=== PATIENT | female | born 1960 | race Caucasian/White ===

== ENCOUNTER 2021-05-18 22:57 | Emergency (ER) | payer OTHER, MEDICAID, SELFPAY ==
[2021-05-18 22:58] VITALS: BP 122/71; PULSE 70; RESP 16; TEMP 36.4; O2SAT 95; BMI 30.6
--- NOTE | 2021-05-18 23:04 | DI.CT.S_ITS ---
PROCEDURE: CT HEAD/BRAIN WO CON INDICATIONS: blurry vision x 8 hours TECHNIQUE: Noncontrast 4.5 mm thick angled axial sections acquired from the foramen magnum to the vertex, with coronal and sagittal reformats. For radiation dose reduction, the following was used: automated exposure control, adjustment of mA and/or kV according to patient size. COMPARISON: None. FINDINGS: Image quality: Excellent. CSF spaces: Basal cisterns are patent. No extra-axial fluid collections. The ventricles are symmetric in size and shape. Brain: No intracranial bleeds or masses. There is cerebral volume loss for age, with resultant ventricular and sulcal prominence. There are periventricular and deep white matter chronic small vessel ischemic changes. There is intracranial internal carotid artery atherosclerosis. Skull and face: Calvarium and visualized facial bones appear intact, without suspicious lesions. Sinuses: Visualized sinuses and mastoids are clear. IMPRESSION: 1. No CT evidence of acute intracranial abnormalities. 2. Mild white matter chronic small vessel ischemic changes. Dictated by: Korey Roland M.D. on 05/18/2021 at 23:31 Approved by: Korey Roland M.D. on 05/18/2021 at 23:32
[2021-05-18 23:21] LABS: Add Manual Diff / Slide Review NO; Basophils Absolute Auto 0 /uL (0-100); Basophils Percent Auto 0.3 % (0-2); Eosinophils Absolute Auto 0 /uL (0-450); Eosinophils Percent Auto 0.2 % (2-4); Hematocrit 41.7 % (36-46); Hemoglobin 14.1 g/dL (12.0-16.0); Lymphocytes Absolute Auto 1500 /uL (1100-4500); Lymphocytes Percent Auto 13.1 % (25-40); Mean Corpuscular HGB Conc 33.8 % (30-36); Mean Corpuscular Hemoglobin 32.6 PG (26-34); Mean Corpuscular Volume 96.4 fL (80-100); Monocytes Absolute Auto 1400 /uL (0-900); Monocytes Percent Auto 11.7 % (3-14); Neutrophils Absolute Auto 8700 /uL (1500-7000); Neutrophils Percent Auto 74.7 % (50-75); Platelet Count 192 X10^3/uL (150-400); Red Blood Cell Count 4.33 X10^6/uL (4.0-5.2); Red Cell Distribution Width 14.1 % (11.6-14.8); White Blood Cell Count 11.6 X10^3/uL (4.5-11.0)
[2021-05-18 23:32] LABS: Alanine Aminotransferase 20 IU/L (<35); Albumin 4.3 g/dL (3.5-5.0); Albumin Globulin Ratio 1.2 (1.0-2.8); Alkaline Phosphatase 52 U/L (38-126); Aspartate Aminotransferase 23 IU/L (14-36); Bilirubin Total 0.4 mg/dL (0.2-1.3); Blood Urea Nitrogen 30 mg/dL (7-17); Carbon Dioxide 21 mmol/L (22-32); Chloride 103 mmol/L (98-107); Creatine Kinase 143 U/L (30-135); Estimated Glomerular Filt Rate 26.5 mL/min (>60); Globulin 3.6 g/dL (1.7-4.1); Glucose 123 mg/dL (80-110); Lipase 74 U/L (23-300); Potassium 3.9 mmol/L (3.4-5.1); Sodium 134 mmol/L (137-145); Total Protein 7.9 g/dL (6.3-8.2)
[2021-05-18 23:43] LABS: Troponin I < 0.012 ng/mL (0.01-0.034)
[2021-05-18 23:47] LABS: CKMB % Relative Index 1.2 % (1.5-5.0); Creatine Kinase MB 1.73 ng/mL (<2.37); HEMOLYSIS 15 (0-50)
--- NOTE | 2021-05-18 23:59 | ED_ITS ---
HPI - Neuro Symptoms/Deficit General Chief Complaint: Neuro Symptoms/Deficit Stated Complaint: vision loss Time Seen by Provider: 05/18/21 23:03 Source: patient and EMS Mode of arrival: EMS History of Present Illness HPI Narrative: Patient is a 61-year-old female who has a history of hyperlipidemia, hypertension severe anxiety presenting today with visual disturbance. She says she has had this happen multiple times it is usually associated with anxiety reaction. She states she lives with her sister who is going through a divorce they had an argument today day and she rate acted. She had some shaking of arms and legs and blurry vision. She was aware the whole time she was shaking. This happened somewhere between 1 and 3:00 p.m.. However she continues to have blurry vision does not blackening or loss of vision. She says typically the vision does not last this long. She has no numbness tingling or weakness. No difficulty speaking. He says she has had multiple workups which never show anything. No prior history of CVA or TIA. She already is feeling better and calmer now than he has in the emergency department. She is not wanting anything for anxiety. On Anticoagulants: No Related Data Home Medications Medication Instructions Recorded Confirmed albuterol sulfate 90 mcg/actuation 2 puff INHALATION 6XD PRN 05/18/21 05/18/21 aerosol inhaler atorvastatin 20 mg tablet 20 mg PO BEDTIME 05/18/21 05/18/21 benazepril 10 mg tablet 10 mg PO BID 05/18/21 05/18/21 benzonatate 100 mg capsule 100 mg PO TID PRN 05/18/21 05/18/21 budesonide-formoterol HFA 160 2 puff INHALATION BID 05/18/21 05/18/21 mcg-4.5 mcg/actuation aerosol inhaler buspirone 7.5 mg tablet 7.5 mg PO BID 05/18/21 05/18/21 diclofenac sodium 1 % topical gel 2.5 g TOPICAL QID 05/18/21 05/18/21 escitalopram oxalate 20 mg tablet 20 mg PO DAILY 05/18/21 05/18/21 fluticasone furoate 200 1 inh INHALATION DAILY 05/18/21 05/18/21 mcg-vilanterol 25 mcg/dose inhalation powder (Breo Ellipta) fluticasone propionate 50 2 spray INTRANASAL TID 05/18/21 05/18/21 mcg/actuation nasal spray,suspension gabapentin 800 mg tablet 800 mg PO TID 05/18/21 05/18/21 hydrocodone 10 mg-acetaminophen 1 tab PO Q4-6H PRN 05/18/21 05/18/21 325 mg tablet leflunomide 20 mg tablet 20 mg PO DAILY 05/18/21 05/18/21 meloxicam 15 mg tablet 15 mg PO DAILY 05/18/21 05/18/21 montelukast 10 mg tablet 10 mg PO DAILY 05/18/21 05/18/21 prednisone 20 mg tablet 40 mg PO DAILY 05/18/21 05/18/21 trazodone 100 mg tablet 100 mg PO BEDTIME 05/18/21 05/18/21 Allergies Allergy/AdvReac Type Severity Reaction Status Date / Time varenicline [From Chantix] Allergy Hives Verified 05/18/21 23:04 Review of Systems Review of Systems Narrative: GENERAL: Denies chills, fatigue, malaise, fever, sweats, travel HEENT: See HPI RESPIRATORY: Denies dyspnea, cough, wheezing, hemoptysis, sputum. CARDIOVASCULAR: Denies chest pain, palpitations, orthopnea, edema GASTROINTESTINAL: Denies nausea, vomiting, abdominal pain, diarrhea, constipation, melena. : Denies dysuria, frequency, incontinence, hematuria, urinary retention, flank pain. MUSCULOSKELETAL: Denies weakness, joint pain, or bony pain SKIN: No rash, no erythema, no pruritus NEUROLOGIC: See HPI PSYCHIATRIC: No concerning psychosocial issues. 12 point review of systems is negative except for those stated above and HPI Hematologic/Lymphatic On Anticoagulants: No Patient History Social History Smoking Status: Current every day smoker Smoking Status: Current every day smoker tobacco type: cigarettes alcohol intake frequency: other Substance Use Type: marijuana Exam Initial Vital Signs Initial Vital Signs: Vital Signs Temperature 97.6 F 05/18/21 22:58 Pulse Rate 70 05/18/21 22:58 Respiratory Rate 16 05/18/21 22:58 Blood Pressure 122/71 05/18/21 22:58 Pulse Oximetry 95 05/18/21 22:58 GENERAL: Alert his he 1-year-old female appears slightly older than stated age in no acute distress. HEENT: Head atraumatic,EOMI, pupils reactive, face symmetric, moist mucous membranes CARDIOVASCULAR: Regular rate and rhythm without murmurs, rubs or gallops. RESPIRATORY: Breath sounds equal bilaterally, no wheezes rales or rhonchi. ABDOMEN: Soft, nontender. Normoactive bowel sounds all 4 quadrants. No guarding or rebound. EXTREMITIES: Normal range of motion, no clubbing or edema. Neurovascularly in tact NEUROLOGICAL: Alert and oriented x4.Normal gait and speech. Cranial nerves II through XII grossly intact. Good [id number], good [id number], strength equal bilaterally, no dysarthria or aphasia, sensation in tact to soft touch bilaterally, no visual changes, no facial droop SKIN: Warm, dry, no laceration, no petechiae, no rashes or lesions. Scores NIH Stroke Scale Level of Conciousness: Alert, keenly responsive Ask month/age: Answers both questions correctly. Open/close eyes, close hand: Performs both tasks correctly Best gaze horizontal: Normal Visual payne: No visual loss Facial palsy: Normal symetrical movement Left arm drift: No drift for full 10 sec Right arm drift: No drift for full 10 sec Left leg drift: No drift for full 5 sec Right leg drift: No drift for full 5 sec Limb ataxia: Absent Sensory on face/arms/legs: Normal, no sensory loss Best language: No aphasia, normal Dysarthria: Normal Extinction or inattention: No abnormality Total NIH Stroke scale score: 0 Course Orders Ordered: ED Orders 05/18/21 23:04 CT head/brain wo con Stat EKG-12 Lead Stat 05/18/21 23:12 Complete Blood Count AUTO DIFF Stat Comprehensive Metabolic Panel Stat Lipase Stat Troponin & CK Cardiac Panel Stat Vital Signs Vital signs: Vital Signs - 8 hr 05/18/21 22:58 05/19/21 00:03 05/19/21 00:04 Temperature 97.6 F Pulse Rate 70 80 80 Respiratory Rate 16 Blood Pressure 122/71 106/58 L Pulse Oximetry 95 96 96 05/19/21 00:30 Temperature Pulse Rate 82 Respiratory Rate Blood Pressure 113/62 Pulse Oximetry 95 MDM - Neuro Symptoms/Deficit Lab Data Result diagrams: 05/18/21 23:12 05/18/21 23:12 Labs: Lab Results 05/18/21 05/18/21 Range/Units 23:12 23:12 WBC 11.6 H (4.5-11.0) X10^3/uL RBC 4.33 (4.0-5.2) X10^6/uL Hgb 14.1 (12.0-16.0) g/dL Hct 41.7 (36-46) % MCV 96.4 (80-100) fL MCH 32.6 (26-34) PG MCHC 33.8 (30-36) % RDW 14.1 (11.6-14.8) % Plt Count 192 (150-400) X10^3/uL Neut % (Auto) 74.7 (50-75) % Lymph % (Auto) 13.1 L (25-40) % [place] % (Auto) 11.7 (3-14) % Eos % (Auto) 0.2 L (2-4) % Baso % (Auto) 0.3 (0-2) % Neut # (Auto) 8700 H (6925-8502) /uL Lymph # (Auto) 1500 (6521-4054) /uL [place] # (Auto) 1400 H (0-900) /uL Eos # (Auto) 0 (0-450) /uL Baso # (Auto) 0 (0-100) /uL Sodium 134 L (137-145) mmol/L Potassium 3.9 (3.4-5.1) mmol/L Chloride 103 (98-107) mmol/L Carbon Dioxide 21 L (22-32) mmol/L BUN 30 H (7-17) mg/dL Creatinine 1.87 H (0.52-1.04) mg/dL Estimated GFR 26.5 L (>60) mL/min BUN/Creatinine Ratio 16.0 (6-22) Glucose 123 H (80-110) mg/dL Calcium 9.0 (8.4-10.2) mg/dL Total Bilirubin 0.4 (0.2-1.3) mg/dL AST 23 (14-36) IU/L ALT 20 (<35) IU/L Alkaline Phosphatase 52 (38-126) U/L Total Creatine Kinase 143 H (30-135) U/L CK-MB (CK-2) 1.73 (<2.37) ng/mL CK-MB (CK-2) Rel Index 1.2 L (1.5-5.0) % Troponin I < 0.012 (0.01-0.034) ng/mL Total Protein 7.9 (6.3-8.2) g/dL Albumin 4.3 (3.5-5.0) g/dL Globulin 3.6 (1.7-4.1) g/dL Albumin/Globulin Ratio 1.2 (1.0-2.8) Lipase 74 (23-300) U/L Imaging Data CT scan - head: Radiologist's Impression: PROCEDURE:? CT HEAD/BRAIN WO CON ? INDICATIONS:? blurry vision x 8 hours ? TECHNIQUE:? Noncontrast 4.5 mm thick angled axial sections acquired from the foramen magnum to the vertex, with coronal and sagittal reformats.? For radiation dose reduction, the following was used:? automated exposure control, adjustment of mA and/or kV according to patient size.? ? COMPARISON:? None. ? FINDINGS:? Image quality:? Excellent.? ? CSF spaces:? Basal cisterns are patent.? No extra-axial fluid collections.? The ventricles are symmetric in size and shape.? ? Brain:? No intracranial bleeds or masses.? There is cerebral volume loss for age, with resultant ventricular and sulcal prominence.? There are periventricular and deep white matter chronic small vessel ischemic changes.? There is intracranial internal carotid artery atherosclerosis.? ? Skull and face:? Calvarium and visualized facial bones appear intact, without suspicious lesions.? ? Sinuses:? Visualized sinuses and mastoids are clear.? ? IMPRESSION:? 1. No CT evidence of acute intracranial abnormalities. 2. Mild white matter chronic small vessel ischemic changes.? ? ? Dictated by: Korey Roland M.D. on 05/18/2021 at 23:31 ? ? Approved by: Korey Roland M.D. on 05/18/2021 at 23:32 ? ECG Data Interpretation: Normal sinus rhythm rate 73 MT interval 172 QRS [address] changes or T- wave inversions MDM Narrative Medical decision making narrative: Patient is overall feeling better she says that her vision is clearing. She really has no focal deficits. Sounds as though she has this happen to her multiple times. Seems to be anxiety related. Certainly does sound like she was having seizure she was awake and oriented while the shaking was going. At this time patient's sister is in room she overall appears well I do not suspect stroke at this time. Discharge Plan Departure Patient Disposition: Home Clinical Impression: Anxiety reaction Instructions: DI for Anxiety -- Adult Activity Restrictions/Additional Instructions: *You have been diagnosed with anxiety *What to do: At this time workup is negative. Please follow-up with primary care provider *Continue to take medications as directed *Follow up with your primary care provider in 2-3 days or call [phone] *Return to ER if you should have loss of vision, numbness, tingling, weakness or any new, worsening or concerning symptoms Prescriptions: No Action atorvastatin 20 mg Tablet 20 mg PO BEDTIME 0RF meloxicam 15 mg Tablet 15 mg PO DAILY 0RF prednisone 20 mg Tablet 40 mg PO DAILY 0RF hydrocodone-acetaminophen 10-325 mg Tablet 1 tab PO Q4-6H PRN (Reason: Pain (Scale Score 1-3)) 0RF leflunomide 20 mg Tablet 20 mg PO DAILY 0RF gabapentin 800 mg Tablet 800 mg PO TID 0RF trazodone 100 mg Tablet 100 mg PO BEDTIME 0RF benzonatate 100 mg Capsule 100 mg PO TID PRN (Reason: Cough) 0RF buspirone 7.5 mg Tablet 7.5 mg PO BID 0RF montelukast 10 mg Tablet 10 mg PO DAILY 0RF albuterol sulfate 90 mcg/actuation Hfa Aerosol Inhaler 2 puff INHALATION 6XD PRN (Reason: Shortness Of Breath) 0RF benazepril 10 mg Tablet 10 mg PO BID 0RF fluticasone propionate 50 mcg/actuation [place],Suspension 2 spray INTRANASAL TID 0RF Rx Instructions: administer into each nostril escitalopram oxalate 20 mg Tablet 20 mg PO DAILY 0RF budesonide-formoterol 160-4.5 mcg/actuation Hfa Aerosol Inhaler 2 puff INHALATION BID 0RF diclofenac sodium [Voltaren] 1 % Gel 2.5 g TOPICAL QID 0RF Rx Instructions: apply to single elbow, wrist or hand; for hand includes palm/fingers/back of hand Breo Ellipta 200-25 mcg/dose Blister With Device 1 inh INHALATION DAILY 0RF
[2021-05-19 00:03] VITALS: PULSE 80; O2SAT 96
[2021-05-19 00:04] VITALS: BP 106/58; PULSE 80; O2SAT 96
[2021-05-19 00:30] VITALS: BP 113/62; PULSE 82; O2SAT 95
== END 2021-05-19 01:05 | disposition home or self-care (01) ==
PROVIDERS: Emergency Provider Emergency Medicine
DX: F41.1 Generalized anxiety disorder (principal); F17.210 Nicotine dependence, cigarettes, uncomplicated
CPT/HCPCS: 36415; 70450; 80053; 82550; 82553; 83690; 84484; 85025; 93010; 99284

== ENCOUNTER 2021-12-27 16:41 | Observation (INO) | payer OTHER, MEDICAID, SELFPAY ==
[2021-12-27] VITALS (13 sets, daily range): BP systolic 125–178; BP diastolic 59–94; PULSE 54–77; RESP 15–25; TEMP 36.2–36.6; O2SAT 96–98; BMI 28.7; BMI 29.4
[2021-12-27 17:50] LABS: Add Manual Diff / Slide Review NO; Basophils Absolute Auto 100 /uL (0-100); Basophils Percent Auto 0.6 % (0-2); Eosinophils Absolute Auto 200 /uL (0-450); Eosinophils Percent Auto 2.2 % (2-4); Hematocrit 38.1 % (36-46); Hemoglobin 13.2 g/dL (12.0-16.0); Lymphocytes Absolute Auto 2300 /uL (1100-4500); Lymphocytes Percent Auto 27.7 % (25-40); Mean Corpuscular HGB Conc 34.6 % (30-36); Mean Corpuscular Hemoglobin 33.5 PG (26-34); Monocytes Absolute Auto 1100 /uL (0-900); Monocytes Percent Auto 12.7 % (3-14); Neutrophils Absolute Auto 4800 /uL (1500-7000); Neutrophils Percent Auto 56.8 % (50-75); Platelet Count 236 X10^3/uL (150-400); Red Blood Cell Count 3.93 X10^6/uL (4.0-5.2); Red Cell Distribution Width 15.1 % (11.6-14.8); White Blood Cell Count 8.4 X10^3/uL (4.5-11.0)
[2021-12-27 18:02] LABS: Alanine Aminotransferase 13 IU/L (<35); Albumin 3.9 g/dL (3.5-5.0); Albumin Globulin Ratio 1.1 (1.0-2.8); Alkaline Phosphatase 68 U/L (38-126); Aspartate Aminotransferase 17 IU/L (14-36); BUN Creatinine Ratio 26.2 (6-22); Bilirubin Total 0.3 mg/dL (0.2-1.3); Blood Urea Nitrogen 28 mg/dL (7-17); Calcium 8.7 mg/dL (8.4-10.2); Carbon Dioxide 24 mmol/L (22-32); Chloride 105 mmol/L (98-107); Creatine Kinase 44 U/L (30-135); Estimated Glomerular Filt Rate 59 mL/min (>60); Globulin 3.6 g/dL (1.7-4.1); Glucose 98 mg/dL (80-110); HEMOLYSIS < 15 (0-50); Lipase 56 U/L (23-300); Potassium 4.3 mmol/L (3.4-5.1); Sodium 135 mmol/L (137-145); Total Protein 7.5 g/dL (6.3-8.2)
[2021-12-27 18:14] LABS: Troponin I < 0.012 ng/mL (0.01-0.034)
[2021-12-27 18:19] LABS: Prolactin 8.1 ng/mL (3.0-18.6)
--- NOTE | 2021-12-27 18:54 | ED_ITS ---
HPI - Seizure General Chief Complaint: Seizure Stated Complaint: States had a seizure Time Seen by Provider: 12/27/21 18:30 History of Present Illness HPI Narrative: 61-year-old female daily smoker with extensive medical history including hypertension, hyperlipidemia, rheumatoid arthritis, anxiety presents for evaluation of shaking episodes that have been happening for a few years but seem to be occurring with more frequency over the past few days if not weeks. She is nearly always awake while it is happening in her arms and legs will be shaking. She denies any recent trauma or head injury. She has no blurred vision or trouble with speech. She denies any change in her medications. Related Data Home Medications Medication Instructions Recorded Confirmed albuterol sulfate 90 mcg/actuation 2 puff inhalation 6XD PRN 05/18/21 05/18/21 aerosol inhaler Shortness Of Breath atorvastatin 20 mg tablet 20 mg PO BEDTIME 05/18/21 05/18/21 benazepril 10 mg tablet 10 mg PO BID 05/18/21 05/18/21 benzonatate 100 mg capsule 100 mg PO TID PRN Cough 05/18/21 05/18/21 budesonide-formoterol HFA 160 2 puff inhalation BID 05/18/21 05/18/21 mcg-4.5 mcg/actuation aerosol inhaler buspirone 7.5 mg tablet 7.5 mg PO BID 05/18/21 05/18/21 diclofenac sodium 1 % topical gel 2.5 g topical QID 05/18/21 05/18/21 escitalopram oxalate 20 mg tablet 20 mg PO DAILY 05/18/21 05/18/21 fluticasone furoate 200 1 inh inhalation DAILY 05/18/21 05/18/21 mcg-vilanterol 25 mcg/dose inhalation powder (Breo Ellipta) fluticasone propionate 50 2 spray intranasal TID 05/18/21 05/18/21 mcg/actuation nasal spray,suspension gabapentin 800 mg tablet 800 mg PO TID 05/18/21 05/18/21 hydrocodone 10 mg-acetaminophen 1 tab PO Q4-6H PRN Pain (Scale 05/18/21 05/18/21 325 mg tablet Score 1-3) leflunomide 20 mg tablet 20 mg PO DAILY 05/18/21 05/18/21 meloxicam 15 mg tablet 15 mg PO DAILY 05/18/21 05/18/21 montelukast 10 mg tablet 10 mg PO DAILY 05/18/21 05/18/21 prednisone 20 mg tablet 40 mg PO DAILY 05/18/21 05/18/21 trazodone 100 mg tablet 100 mg PO BEDTIME 05/18/21 05/18/21 Allergies Allergy/AdvReac Type Severity Reaction Status Date / Time bupropion [From Wellbutrin] Allergy Hives Verified 12/27/21 16:54 varenicline [From Chantix] Allergy Hives Verified 05/18/21 23:04 Review of Systems Review of Systems Narrative: GENERAL: Denies chills, fatigue, malaise, fever, sweats. HEENT: Denies sinus pain, ear pain, sore throat, difficulty swallowing, dizziness. RESPIRATORY: Denies dyspnea, cough, wheezing, hemoptysis, sputum. CARDIOVASCULAR: Denies chest pain, palpitations, orthopnea, edema, GASTROINTESTINAL: Denies nausea, vomiting, abdominal pain, diarrhea, constipation, melena. : Denies dysuria, frequency, incontinence, hematuria, urinary retention. MUSCULOSKELETAL: denies weakness, joint pain, or bony pain SKIN: Denies rash, skin lesions, or other NEUROLOGIC: See HPI PSYCHIATRIC: No concerning psychosocial issues. 12 point review of systems is negative except for those stated above Patient History Social History Smoking Status: Current every day smoker Smoking Status: Current every day smoker tobacco type: cigarettes alcohol intake frequency: other Substance Use Type: marijuana Exam Narrative Exam Narrative: GENERAL: [61] year old patient appears stated age. Well-developed patient, in mild distress. HEAD: Atraumatic. Normocephalic. EYES: Pupils equal round and reactive. Extraocular motions intact. No scleral icterus. No injection or drainage. ENT: Nose without bleeding, purulent drainage. Throat without erythema, tonsillar hypertrophy or exudate. Airway patent. NECK: Trachea midline. Non tender CARDIOVASCULAR: Regular rate and rhythm without murmurs, gallops, or rubs. RESPIRATORY: Clear to auscultation. Breath sounds equal bilaterally. No wheezes, rales, or rhonchi. GASTROINTESTINAL: Abdomen soft, non-tender, nondistended. EXTREMITIES: No edema or joint tenderness. BACK: Nontender without deformity or crepitance. No flank tenderness. NEURO: AOx3. SKIN: No rash or erythema of visible areas NIH Stroke Scale 1a. LOC: Patient is alert and keenly responsive (0) 1b. LOC Questions: Patient answers both LOC questions accurately (0) 1c. LOC Commands: Patient performs both tasks correctly (0) 2. Best Gaze: Normal (0) 3. Visual: No visual loss (0) 4. Facial palsy: Normal symmetrical movements (0) 5. Motor arm: No drift (0) 6. Motor leg: No drift (0) 7. Limb ataxia: Absent (0) 8. Sensory: Normal (0) 9. Best language: No aphasia; normal (0) 10. Dysarthria: Normal (0) 11. Extinction and inattention: No abnormality (0) NIHSS: 0 Initial Vital Signs Initial Vital Signs: Vital Signs Temperature 97.9 F 12/27/21 16:50 Pulse Rate 77 12/27/21 16:50 Respiratory Rate 18 12/27/21 16:50 Blood Pressure 130/67 12/27/21 16:50 Pulse Oximetry 96 12/27/21 16:50 Oxygen Delivery Method 12/27/21 16:50 Course Course Course Narrative: Called to see patient having 1 of her ?episodes?. She is awake and alert, speaking clearly and bilateral upper and lower extremities are twitching rhythmically, this lasts a minute or 2 and then stops promptly, patient remains alert for the entirety Orders Ordered: ED Orders 12/27/21 17:00 Complete Blood Count AUTO DIFF Stat Comprehensive Metabolic Panel Stat Lipase Stat Prolactin Stat Troponin & CK Cardiac Panel Stat 12/27/21 17:26 EKG-12 Lead Stat 12/27/21 18:55 CT head/brain wo con Stat Consultations Consultation #1: Upon receipt of abnormal head CT I placed a call to Neurology at the [facility]. We have reviewed the history and physical exam as well as labs and imaging. She sure the opinion that it would be an atypical presentation for classic PRES, however strongly recommends patient come into the hospital for further evaluation including an MR of the brain with and without contrast Vital Signs Vital signs: Vital Signs - 8 hr 12/27/21 16:50 12/27/21 18:10 12/27/21 18:10 Temperature 97.9 F Pulse Rate 77 67 Respiratory Rate 18 Blood Pressure 130/67 133/94 H Pulse Oximetry 96 98 Oxygen Delivery Method Room Air Room Air 12/27/21 18:30 12/27/21 18:30 12/27/21 19:00 Temperature Pulse Rate 65 63 Respiratory Rate 25 H Blood Pressure 135/71 Pulse Oximetry 97 97 Oxygen Delivery Method Room Air MDM - Seizure Lab Data Result diagrams: 12/27/21 17:00 12/27/21 17:00 Labs: Lab Results 12/27/21 12/27/21 Range/Units 17:00 17:00 WBC 8.4 (4.5-11.0) X10^3/uL RBC 3.93 L (4.0-5.2) X10^6/uL Hgb 13.2 (12.0-16.0) g/dL Hct 38.1 (36-46) % MCV 97.0 (80-100) fL MCH 33.5 (26-34) PG MCHC 34.6 (30-36) % RDW 15.1 H (11.6-14.8) % Plt Count 236 (150-400) X10^3/uL Neut % (Auto) 56.8 (50-75) % Lymph % (Auto) 27.7 (25-40) % [place] % (Auto) 12.7 (3-14) % Eos % (Auto) 2.2 (2-4) % Baso % (Auto) 0.6 (0-2) % Neut # (Auto) 4800 (8374-1910) /uL Lymph # (Auto) 2300 (5405-4643) /uL [place] # (Auto) 1100 H (0-900) /uL Eos # (Auto) 200 (0-450) /uL Baso # (Auto) 100 (0-100) /uL Sodium 135 L (137-145) mmol/L Potassium 4.3 (3.4-5.1) mmol/L Chloride 105 (98-107) mmol/L Carbon Dioxide 24 (22-32) mmol/L BUN 28 H (7-17) mg/dL Creatinine 1.07 H (0.52-1.04) mg/dL Estimated GFR 59 L (>60) mL/min BUN/Creatinine Ratio 26.2 H (6-22) Glucose 98 (80-110) mg/dL Calcium 8.7 (8.4-10.2) mg/dL Total Bilirubin 0.3 (0.2-1.3) mg/dL AST 17 (14-36) IU/L ALT 13 (<35) IU/L Alkaline Phosphatase 68 (38-126) U/L Total Creatine Kinase 44 (30-135) U/L CK-MB (CK-2) TNP CK-MB (CK-2) Rel Index TNP Troponin I < 0.012 (0.01-0.034) ng/mL Total Protein 7.5 (6.3-8.2) g/dL Albumin 3.9 (3.5-5.0) g/dL Globulin 3.6 (1.7-4.1) g/dL Albumin/Globulin Ratio 1.1 (1.0-2.8) Lipase 56 (23-300) U/L Prolactin 8.1 (3.0-18.6) ng/mL Imaging Data CT scan - head: Radiologist's Impression: [address] [address] [address] Scan Report Signed Patient: ECHO Forte MR#: [id number] : 1960 Acct:[id number] Age/Sex: 61 / F Date of Service: 12/27/21 Loc: ED Accession Number: [id number] ?? Procedure: CT head/brain wo con Ordering Provider: Alpesh Faustin D.O. PROCEDURE:? CT HEAD/BRAIN WO CON ? INDICATIONS:? possible seizure ? TECHNIQUE:? Noncontrast 4.5 mm thick angled axial sections acquired from the foramen magnum to the vertex, with coronal and sagittal reformats.? For radiation dose reduction, the following was used:? automated exposure control, adjustment of mA and/or kV according to patient size.? ? COMPARISON:? [facility], CT, CT HEAD/BRAIN WO CON, 05/18/2021, 23:08. ? FINDINGS:? Image quality:? Excellent.? ? CSF spaces:? Basal cisterns are patent.? No extra-axial fluid collections.? Ventricles are normal in size and shape.? ? Brain:? No midline shift.? Low-density regions are seen within the bilateral posterior parietal and occipital lobes as well as the posterior aspect of the left cerebellar hemisphere.? No intracranial masses or hemorrhage.? Kuo-white matter interface is normal.? ? Skull and face:? Calvarium and visualized facial bones are intact, without suspicious lesions.? ? Sinuses:? Visualized sinuses and mastoids are clear.? ? IMPRESSION:? Findings consistent with posterior reversible encephalopathy syndrome. ? ? Dictated by: Ileana Larose M.D. on 12/27/2021 at 19:19 ? ? Approved by: Ileana Larose M.D. on 12/27/2021 at 19:20 ? Discharge Plan Departure Patient Disposition: Admitted as Observation Clinical Impression: PRES (posterior reversible encephalopathy syndrome) Admit Date/Time: 12/27/21 20:43 Admit Provider: Leonor Rasmussen
--- NOTE | 2021-12-27 18:55 | DI.CT.S_ITS ---
PROCEDURE: CT HEAD/BRAIN WO CON INDICATIONS: possible seizure TECHNIQUE: Noncontrast 4.5 mm thick angled axial sections acquired from the foramen magnum to the vertex, with coronal and sagittal reformats. For radiation dose reduction, the following was used: automated exposure control, adjustment of mA and/or kV according to patient size. COMPARISON: [facility], CT, CT HEAD/BRAIN WO CON, 05/18/2021, 23:08. FINDINGS: Image quality: Excellent. CSF spaces: Basal cisterns are patent. No extra-axial fluid collections. Ventricles are normal in size and shape. Brain: No midline shift. Low-density regions are seen within the bilateral posterior parietal and occipital lobes as well as the posterior aspect of the left cerebellar hemisphere. No intracranial masses or hemorrhage. Kuo-white matter interface is normal. Skull and face: Calvarium and visualized facial bones are intact, without suspicious lesions. Sinuses: Visualized sinuses and mastoids are clear. IMPRESSION: Findings consistent with posterior reversible encephalopathy syndrome. Dictated by: Ileana Larose M.D. on 12/27/2021 at 19:19 Approved by: Ileana Larose M.D. on 12/27/2021 at 19:20
[2021-12-27 21:50] LABS: COVID19 -Nasal RAPID Negative (Negative)
--- NOTE | 2021-12-27 21:56 | DI.MRI.S_ITS ---
PROCEDURE: MR BRAIN (IAC) WWO CON INDICATIONS: PRES on CT TECHNIQUE: Noncontrast sagittal T1 spin echo, axial FLAIR, axial gradient echo, axial diffusion and ADC through the brain. Axial thin-slice 3D CISS, coronal TruFISP, axial T1 spin echo with fat saturation through the internal auditory canals. After the administration of contrast, thin slice axial and coronal T1 spin echo with fat saturation through the internal auditory canals, and axial and coronal and sagittal T1 spin echo with fat saturation through the brain. COMPARISON: [facility], CT, CT HEAD/BRAIN WO CON, 12/27/2021, 19:05. Outside Film, MR, MR BRAIN WITHOUT CONTRAST, 11/28/2018, 9:13. FINDINGS: Increased T2/FLAIR signal in the bilateral posterior parietal and occipital lobes, similar to the distribution of hypoattenuation seen on the comparison CT. No unexpected intracranial enhancement, susceptibility, or restricted diffusion. No mass effect or midline shift. The major intracranial vascular flow-related signal voids are maintained. Circular caliber and position. No abnormal extra-axial fluid collection. Midline structures normal in configuration. No gross orbital abnormality. Paranasal sinuses and mastoid air cells are predominantly clear. IMPRESSION: Increased T2/FLAIR signal in the subcortical white matter of the bilateral parietal and occipital lobes. Distribution is unchanged from comparison CT. Findings would be consistent with PRES. Dictated by: Seamus Velasquez M.D. on 12/28/2021 at 9:09 Approved by: Seamus Velasquez M.D. on 12/28/2021 at 9:09
[2021-12-27] MEDS: ATORVASTATIN 20 MG TABLET 80 MG PO (23:11)
[2021-12-27] MEDS: SODIUM CHLORIDE 0.9% 1,000 ML 60 ML IV (23:11)
[2021-12-27] MEDS: BUSPIRONE 5 MG TABLET 7.5 MG PO (23:11)
[2021-12-27] MEDS: lisinopriL 10 MG TABLET PO (23:12)
[2021-12-27] MEDS: TRAZODONE 100 MG TABLET PO (23:12)
[2021-12-27 23:29] LABS: Troponin I < 0.012 ng/mL (0.01-0.034)
[2021-12-27 23:33] LABS: Magnesium 2.2 mg/dL (1.6-2.3)
[2021-12-28] VITALS (8 sets, daily range): BP systolic 136–162; BP diastolic 77–89; PULSE 61–69; RESP 16–18; TEMP 36.1–36.2; O2SAT 96–98; BMI 29.4
[2021-12-28 00:04] LABS: Thyroid Stimulating Hormone 6.72 uIU/mL (0.47-4.68)
[2021-12-28 02:55] LABS: Appearance Urine UA CLOUDY; Bilirubin Urine UA NEGATIVE (NEGATIVE); Color Urine UA YELLOW; Glucose Urine UA NEGATIVE (Negative); Ketones Urine UA NEGATIVE (NEGATIVE); Leukocyte Esterase Urine UA 1+ (NEGATIVE); Nitrite Urine UA NEGATIVE (Negative); Occult Blood Urine UA NEGATIVE (Negative); Protein Urine UA NEGATIVE (Negative); Specific Gravity Urine UA <=1.005 (1.000-1.035); Urobilinogen Urine UA 0.2 E.U./dL (0.2)
--- NOTE | 2021-12-28 04:22 | PM.HP.1 ---
History of Present Illness History of Present Illness Date Patient Seen: 12/27/21 Time Patient Seen: 22:04 Chief complaint: States had a seizure Narrative: ECHO Forte is a 61-year-old female daily smoker with extensive medical history including hypertension, hyperlipidemia, rheumatoid arthritis, depression w/anxiety, COPD insomnia, neuropathy who presented to the ED for evaluation of shaking episodes. The patient reports a 5 year history shaking of her extremities, with varied extremity involvement, and degree. She states that these episodes occurred on average once monthly for the past 5 years. She came into the ED because within the last month she has had 20 or so episodes. The patient has been seen and evaluated by both her primary and multiple neurologists over the past 5 years, and no etiology has been determined. Her current neurologist is Dr. Gee at [facility]. Within the past week she has had episodes of dysarthria, and difficulty with walking and balance having near syncopal episodes she also reports that she bit her tongue earlier in the week as well. She went to the would be walk-in clinic following a witnessed syncopal episode. She is nearly always awake during these episodes in which her her arms and legs will be shaking.? She denies any recent trauma or head injury.? She has no blurred vision or trouble with speech.? She denies any change in her medications. Patient denies headache, acute changes in vision, tinnitus, hearing difficulties, diaphoresis, chest pain, shortness of breath, changes with numbness, tingling, impaired dexterity, recent illness or injury. Patient does report that she has stopped driving as she feels it is unsafe. Patient last had an echo, stress test and sleep study in 2019 which she reports was within normal limits. Patient is resting comfortably in bed at this time has not reported any further episodes since arriving on the floor for admit. Upon admit patient's temp 97.9?, BP 145/69, HR 54, arbs 15, O2 saturation 96% on room air. Patient's CBC is predominantly within normal limits, her CMP demonstrates possible JAIRO the patient denies any history of CKD, but her only is previous labs in our system from April of 2021 creatinine 1.87, BUN 30, GFR 26.5 today patient's sodium is 135, BUN is 28, creatinine is 1.07, GFR is 59 patient's initial troponin is within normal limits as is procalcitonin and lipase. Patient's head CT demonstrated findings consistent with posterior reversible encephalopathy syndrome. ED did consult with [facility] neuro stroke. Patient admitted for PRES, stroke versus TIA rule out. Patient History Medical History (Updated 12/28/21 @ 04:36 by ANILA Obregon) Asthma COPD (chronic obstructive pulmonary disease) Depression with anxiety Essential hypertension Hyperlipidemia Neuropathy Rheumatoid arthritis Surgical History (Updated 12/28/21 @ 04:36 by ANILA Obregon) History of tonsillectomy Family & Social History Family History (Updated 12/28/21 @ 04:37 by ANILA Obregon) Mother Diabetes mellitus Hypertension Hyperlipidemia Father Cancer Rheumatoid arthritis Social History: household members family -lives with her sister, patient is disabled Prior Living Arrangements Apartment/Condo Safety & Behavioral: Feels Safe in Current Yes Environment Been Physically Hurt or No Threatened By a Person Tobacco & Substance use: Tobacco type cigarettes Smoking Status Current every day smoker smoker times 50 years Smoking packs per day 1 alcohol intake former sober for 39 years alcohol intake frequency other 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 Meds Home Medications and Allergies Home Medications Medication Instructions Recorded Confirmed Type albuterol sulfate 90 mcg/actuation 2 puff inhalation 6XD PRN 05/18/21 12/27/21 History aerosol inhaler Shortness Of Breath atorvastatin 20 mg tablet 20 mg PO BEDTIME 05/18/21 12/27/21 History benzonatate 100 mg capsule 100 mg PO TID PRN Cough 05/18/21 12/27/21 History buspirone 7.5 mg tablet 7.5 mg PO BID 05/18/21 12/27/21 History diclofenac sodium 1 % topical gel 2.5 g topical QID 05/18/21 12/27/21 History escitalopram oxalate 20 mg tablet 20 mg PO DAILY 05/18/21 12/27/21 History fluticasone propionate 50 2 spray intranasal TID 05/18/21 12/27/21 History mcg/actuation nasal spray,suspension gabapentin 800 mg tablet 800 mg PO TID 05/18/21 12/27/21 History hydrocodone 10 mg-acetaminophen 1 tab PO Q4-6H PRN Pain (Scale 05/18/21 12/27/21 History 325 mg tablet Score 1-3) leflunomide 20 mg tablet 20 mg PO DAILY 05/18/21 12/27/21 History meloxicam 15 mg tablet 15 mg PO DAILY 05/18/21 12/27/21 History montelukast 10 mg tablet 10 mg PO DAILY 05/18/21 12/27/21 History trazodone 100 mg tablet 100 mg PO BEDTIME 05/18/21 12/27/21 History etanercept 50 mg/mL (1 mL) 50 mg SUBCUT QWEEK 12/27/21 12/27/21 History subcutaneous pen injector (Enbrel SureClick) famotidine 20 mg tablet 20 mg PO BID 12/27/21 12/27/21 History fexofenadine 180 mg tablet 180 mg PO DAILY 12/27/21 12/27/21 History fluticasone fur. 200 mcg-umeclid 1 inh inhalation DAILY 12/27/21 12/27/21 History 62.5 mcg-vilant 25 mcg inhalat.powder (Trelegy Ellipta) hydroxyzine HCl 10 mg tablet 10 mg PO TID PRN Itching 12/27/21 12/27/21 History lidocaine-prilocaine 2.5 %-2.5 % 1 applic topical TID PRN Pain, Mild 12/27/21 12/27/21 History topical cream losartan 50 mg tablet 50 mg PO DAILY 12/27/21 12/27/21 History triamcinolone acetonide 0.1 % 1 applic topical DAILY PRN Rash 12/27/21 12/27/21 History topical ointment Allergies Allergy/AdvReac Type Severity Reaction Status Date / Time bupropion [From Wellbutrin] Allergy Hives Verified 12/27/21 16:54 varenicline [From Chantix] Allergy Hives Verified 05/18/21 23:04 Review of Systems Review of Systems Narrative: All 12 point systems reviewed with the patient and are negative except otherwise documented. Exam Vital Signs (past 8 hours): - 12/27/21 20:30 12/27/21 20:33 12/27/21 20:33 Temperature Pulse Rate 56 L 57 L Respiratory Rate 19 18 Blood Pressure 125/59 L Pulse Oximetry 96 96 Oxygen Delivery Method Oxygen Flow Rate 12/27/21 21:00 12/27/21 21:00 12/27/21 21:30 Temperature Pulse Rate 54 L Respiratory Rate 15 Blood Pressure 145/69 H 163/94 H Pulse Oximetry 96 Oxygen Delivery Method Oxygen Flow Rate 12/27/21 21:30 12/27/21 21:45 12/27/21 23:12 Temperature 97.2 F L Pulse Rate 57 L 56 L 59 L Respiratory Rate 24 18 Blood Pressure 178/73 H 136/67 Pulse Oximetry 98 96 Oxygen Delivery Method Room Air Oxygen Flow Rate 0 12/28/21 00:15 Temperature 97.2 F L Pulse Rate 67 Respiratory Rate 18 Blood Pressure 145/79 H Pulse Oximetry 98 Oxygen Delivery Method Oxygen Flow Rate 0 Oxygen Delivery Method Room Air Oxygen Flow Rate 0 Narrative Exam Narrative: General: Patient is a well-developed, well-nourished female in no distress at this time. HEENT: Normocephalic, atraumatic, extraocular muscles intact, oral pharynx is clear and mucous membranes are moist. Neck is supple and symmetric, trachea is midline, no adenopathy, no thyroid enlargement, nontender, no masses palpated. Negative for JVD Chest: Normal AP diameter and contour without kyphoscoliosis, no nasal flaring, retractions, or tachypneic labored breathing. Lungs: Auscultation of all lung payne are clear without adventitious sounds, wheezes, rhonchi, or rales. Cardio: S1 & S2 with regular rate and rhythm without murmur, rubs, or gallops, no carotid bruit, no cardiac pulsations present. Abdomen: Soft nontender, negative for organomegaly, or masses. Bowel sounds are present in all 4 quadrants without guarding or rebound, no CVA tenderness. Musculoskeletal: Muscle strength and tone are equal within normal limits, no deformity, crepitus, effusions, cyanosis, clubbing or edema present. Full range of motion intact radial and pedal pulses are normal. Skin: Warm dry and intact without rashes, ulcerations or petechiae. Neuro: Alert and orientated x3, strength is +5/5 in all extremities, sensation to touch intact, no gross deficits noted of cranial nerves. Psych: Patient has a well-kept appearance, appropriate affect, mental status attitude thought context and judgment are appropriate for age. Objective Labs Result Diagrams: 12/27/21 17:00 12/27/21 17:00 Labs: Laboratory Results - last 24 hr 12/27/21 12/27/21 12/27/21 17:00 17:00 21:29 WBC 8.4 RBC 3.93 L Hgb 13.2 Hct 38.1 MCV 97.0 MCH 33.5 MCHC 34.6 RDW 15.1 H Plt Count 236 Neut % (Auto) 56.8 Lymph % (Auto) 27.7 [place] % (Auto) 12.7 Eos % (Auto) 2.2 Baso % (Auto) 0.6 Neut # (Auto) 4800 Lymph # (Auto) 2300 [place] # (Auto) 1100 H Eos # (Auto) 200 Baso # (Auto) 100 Sodium 135 L Potassium 4.3 Chloride 105 Carbon Dioxide 24 BUN 28 H Creatinine 1.07 H Estimated GFR 59 L BUN/Creatinine Ratio 26.2 H Glucose 98 Calcium 8.7 Magnesium Total Bilirubin 0.3 AST 17 ALT 13 Alkaline Phosphatase 68 Total Creatine Kinase 44 CK-MB (CK-2) TNP CK-MB (CK-2) Rel Index TNP Troponin I < 0.012 Total Protein 7.5 Albumin 3.9 Globulin 3.6 Albumin/Globulin Ratio 1.1 Lipase 56 TSH Prolactin 8.1 Urine Color Urine Appearance Urine pH Ur Specific [place] Urine Protein Urine Glucose (UA) Urine Ketones Urine Occult Blood Urine Nitrate Urine Bilirubin Urine Urobilinogen Ur Leukocyte Esterase SARS-CoV-2 (PCR) Negative 12/27/21 12/27/21 12/27/21 21:31 23:00 23:00 WBC RBC Hgb Hct MCV MCH MCHC RDW Plt Count Neut % (Auto) Lymph % (Auto) [place] % (Auto) Eos % (Auto) Baso % (Auto) Neut # (Auto) Lymph # (Auto) [place] # (Auto) Eos # (Auto) Baso # (Auto) Sodium Potassium Chloride Carbon Dioxide BUN Creatinine Estimated GFR BUN/Creatinine Ratio Glucose Calcium Magnesium 2.2 Total Bilirubin AST ALT Alkaline Phosphatase Total Creatine Kinase CK-MB (CK-2) CK-MB (CK-2) Rel Index Troponin I Total Protein Albumin Globulin Albumin/Globulin Ratio Lipase TSH 6.72 H Prolactin Urine Color Yellow Urine Appearance Cloudy Urine pH 5.0 Ur Specific [place] <=1.005 Urine Protein Negative Urine Glucose (UA) Negative Urine Ketones Negative Urine Occult Blood Negative Urine Nitrate Negative Urine Bilirubin Negative Urine Urobilinogen 0.2 Ur Leukocyte Esterase 1+ H SARS-CoV-2 (PCR) 12/27/21 23:00 WBC RBC Hgb Hct MCV MCH MCHC RDW Plt Count Neut % (Auto) Lymph % (Auto) [place] % (Auto) Eos % (Auto) Baso % (Auto) Neut # (Auto) Lymph # (Auto) [place] # (Auto) Eos # (Auto) Baso # (Auto) Sodium Potassium Chloride Carbon Dioxide BUN Creatinine Estimated GFR BUN/Creatinine Ratio Glucose Calcium Magnesium Total Bilirubin AST ALT Alkaline Phosphatase Total Creatine Kinase CK-MB (CK-2) CK-MB (CK-2) Rel Index Troponin I < 0.012 Total Protein Albumin Globulin Albumin/Globulin Ratio Lipase TSH Prolactin Urine Color Urine Appearance Urine pH Ur Specific [place] Urine Protein Urine Glucose (UA) Urine Ketones Urine Occult Blood Urine Nitrate Urine Bilirubin Urine Urobilinogen Ur Leukocyte Esterase SARS-CoV-2 (PCR) Assessment & Plan Assessment & Plan narrative: ECHO Forte is a 61-year-old female daily smoker with extensive medical history including hypertension, hyperlipidemia, rheumatoid arthritis, depression w/anxiety, COPD insomnia, neuropathy who presented to the ED for evaluation of shaking episodes, syncopal episodes, dysarthria, and increasing balance and coordination impairment. The patient has noted a significant increase in these extremity shaking events over the past month with increasing near-syncope and syncopal episodes, dysarthria and poor balance and coordination issues. Patient admitted for neurological deficit, PRES, stroke versus TIA rule out. 1. Neurological deficit (uncontrolled extremity shaking (Sz?), dysarthria, syncopal episodes, impaired balance and coordination), acute on chronic, present on admission -risk stratification rule out TIA versus stroke suspect possible developing neurological disorder -MR with and without contrast, seizure precautions, NIH as needed, bedside swallow.NIH:0 -Lipitor, Plavix, ASA -TSH ordered, trend tropes x3 -telemedicine monitoring -PT/OT/speech consult -Patient's neurologist at [facility] has left the practice she will need a new referral to [facility] on discharge 2. Posterior reversible encephalopathy syndrome, acute, present on admission -patient is not confused, and has not been hypertensive, no ROONEY, no visual disturbance,, no specific limb weakness, or bladders dysfunction. Patient does take immunosuppressive medication for her RA. Her RA medication may be the contributing factor. -rule out/ monitor for acute toxic leukoencephalopathy, acute demyelinating encephalomyelitis, CVT, cerebral vascular syndromes, infectious, or paraneoplastic causes. -seizure precautions, neuro checks, NIH as needed. 3. JAIRO, acute, present on admission Patient may have undiagnosed chronic kidney disease, or renal function is incidental finding. -BUN 28, creatinine 1.07, GFR 59-these numbers are improved though from our previous labs that were noted on 05/18/2021 creatinine 1.87, BUN 30, GFR 26.5 4. Essential hypertension, acute on chronic, present on admission -continue losartan 5. COPD with asthma related to tobacco abuse, chronic, present on admission -continue albuterol inhaler, Breo, Trelegy, fexofenadine, fluticasone -encouraged tobacco cessation 6. Depression with anxiety, chronic, present on admission -continue Lexapro and BuSpar, trazodone 7. Hyperlipidemia, chronic, present on admission -continue Lipitor 8. Rheumatoid arthritis with neuropathy, chronic, present on admission -continue gabapentin, Enbrel, leftunomide Code status:DNR Surrogate decision maker: Sister Sumi MARCELO PCR:Negative DVT/VTE prophylaxis: Lovenox and SCDs Disposition: Patient admitted for observation monitoring PRES overnight, ruling out stroke or TIA, expected length of stay less than 2 midnights I have utilized all available immediate resources to obtain, update, or review the patient's current medications. I confirmed that the patient's advanced care plan is present, Code status is documented and/or surrogate decision maker is listed in the patient's medical record. Time Spent With Patient Critical Care time: I spent a total of [] minutes of critical care time on this patient's care today; this time is exclusive of procedural time. Scores NIHSS Level of Conciousness: Alert, keenly responsive Ask month/age: Answers both questions correctly. Open/close eyes, close hand: Performs both tasks correctly Best gaze horizontal: Normal Visual payne: No visual loss Facial palsy: Normal symetrical movement Left arm drift: No drift for full 10 sec Right arm drift: No drift for full 10 sec Left leg drift: No drift for full 5 sec Right leg drift: No drift for full 5 sec Limb ataxia: Absent Sensory on face/arms/legs: Normal, no sensory loss Best language: No aphasia, normal Dysarthria: Normal Extinction or inattention: No abnormality Total NIH Stroke scale score: 0 Quality VTE Deep Vein Thrombosis/Pulmonary Embolism Present on Admission: No
[2021-12-28 06:56] LABS: Bacteria Urine Many (>30); Culture Indicated Urine Specimen Cultured; RBC Urine None Seen (0-5/HPF); Squamous Epithelial Cell Urine 1-5 /HPF (0-5/HPF); WBC Urine 5-10/HPF (0-5/HPF)
[2021-12-28 07:44] LABS: Alanine Aminotransferase 11 IU/L (<35); Albumin 3.4 g/dL (3.5-5.0); Alkaline Phosphatase 61 U/L (38-126); Aspartate Aminotransferase 13 IU/L (14-36); Bilirubin Total 0.3 mg/dL (0.2-1.3); Blood Urea Nitrogen 20 mg/dL (7-17); Calcium 8.5 mg/dL (8.4-10.2); Carbon Dioxide 25 mmol/L (22-32); Chloride 109 mmol/L (98-107); Estimated Glomerular Filt Rate > 60 mL/min (>60); Globulin 3.4 g/dL (1.7-4.1); Glucose 89 mg/dL (80-110); HEMOLYSIS < 15 (0-50); Potassium 4.5 mmol/L (3.4-5.1); Sodium 138 mmol/L (137-145); Total Protein 6.8 g/dL (6.3-8.2)
[2021-12-28 07:49] LABS: NT-proBNP (BNP-Adult 18+) 123 pg/mL (<125)
[2021-12-28] MEDS: ESCITALOPRAM 10 MG TABLET 20 MG PO (09:06)
[2021-12-28] MEDS: ASPIRIN EC 325 MG TABLET PO (09:06)
[2021-12-28] MEDS: GABAPENTIN 400 MG CAPSULE 800 MG PO ×2 (09:06→14:15)
[2021-12-28] MEDS: BUSPIRONE 5 MG TABLET 7.5 MG PO (09:06)
[2021-12-28] MEDS: CLOPIDOGREL 75 MG TABLET PO (09:06)
[2021-12-28] MEDS: lisinopriL 10 MG TABLET PO (09:07)
[2021-12-28] MEDS: ENOXAPARIN 30 MG/0.3 ML SYRINGE SUBCUT (09:07)
--- NOTE | 2021-12-28 12:11 | OT.IP.EVAL ---
Past Medical History (Last Updated 12/28/21 @ 04:36 by Leonor Rasmussen [facility]) Asthma COPD (chronic obstructive pulmonary disease) Depression with anxiety Essential hypertension Hyperlipidemia Neuropathy Rheumatoid arthritis Surgical History (Last Updated 12/28/21 @ 04:36 by Leonor Rasmussen [facility]) History of tonsillectomy Occupational Therapy Inpatient Evaluation/Re-Eval M1 PT/OT-IP Prior Functional Status Start: 12/28/21 12:23 Freq: NEEDED Status: Active Protocol: Document 12/28/21 12:23 [facility] (Rec: 12/28/21 12:44 [facility] [id number]) Medical Review Prior Functional Status Communication independent Mobility and Gait Use of cane in the house at times when her legs are shaky, otherwise no device used. Activities of Daily Living and IADL's Pending how she feels, pt is independent for ADL's but her sister assists as needed. Pt's sister assist with IADl needs currently, and provides supervision for money management needs. Social History Household Members family Living Arrangements Apartment/Condo Number of Floors (Floors) One Floor Number of Stairs To Enter/Railing? Two small steps to enter. Pt has uneven terrain to get to the 2 small steps and not able to use her 4ww walker as too beat up to negotiate. Home Environment Standard Height Toilet,Tub/ Shower Home Equipment Front Wheel Walker,Straight Cane,Manual Wheelchair,Raised Toilet Seat w/Armrests,Shower Seat with Backrest,Hand Held Shower,Grab Bars In Shower Additional Social History Comment Pt has a tub handle she uses to assist to get into the tub. M2 OT-IP Current Condition Start: 12/28/21 12:23 Freq: Status: Active Protocol: Document 12/28/21 12:23 [facility] (Rec: 12/28/21 12:44 [facility] [id number]) Occupational Therapy Current Condition Current Condition Evaluation Date 12/28/21 Treatment Diagnosis Neurological deficits, seizures? Diagnosis Onset Date 12/27/21 M3 OT- IP Subjective and Pain Start: 12/28/21 12:23 Freq: Status: Active Protocol: Document 12/28/21 12:23 [facility] (Rec: 12/28/21 12:44 [facility] [id number]) OT- Subjective Occupational Therapy Visit Type Type Initial Evaluation Visit Start Time 11:40 Visit Stop Time 12:11 Total Visit Minutes 31 Occupational Therapy Visit Comments Patient Comments Pt agreed to get up to the recliner. Patient/Caregiver Goals TO go home. OT Pain Assessment Pain When Pain Assessed At Rest Pain Present Pain Present Denied Pain M4 OT- IP ADL's Start: 12/28/21 12:23 Freq: Status: Active Protocol: Document 12/28/21 12:23 [facility] (Rec: 12/28/21 12:44 [facility] [id number]) OT TSY-Vjsm-Ciqhqqp General Evaluation Self-Feeding Ability Independent OT ADL-Grooming General Evaluation Grooming Ability Independent Comments OT Grooming Comments while seated in the recliner OT ADL-Oral Care General Eval Oral Care Ability Independent Comments Oral Care Comments While seated OT ADL-Dressing General Eval Lower Body Dressing Ability Independent Comments OT Dressing Comments Pt able to independently mela/ doff socks while seated. OT ADL-Toileting Comments OT Toileting Comments Per pt just finished going to the toilet with nursing aid earlier. OT ADL-Bathing Comments OT Bathing Comments Not performed. Pt states her sister is always available to assist as needed. M5 OT- IP IADL's Start: 12/28/21 12:23 Freq: Status: Active Protocol: Document 12/28/21 12:23 [facility] (Rec: 12/28/21 12:44 [facility] [id number]) OT-Instrumental Activities of Daily Living Deficits IADL Deficits Identified Deficits Home Safety Awareness Awareness of Need for Assistance at Home Good Awareness Ability to Problem Solve Emergency Able to Problem Solve Situations Medication Management Medication Management Caregiver Provides Supervision Money Management Money Management Caregiver Provides Assistance Meal Preparation Meal Preparation Caregiver Provides Assist Screw Machine Operator Screw Machine Operator Caregiver Provides Assist M6 OT- IP Functional Cognition Start: 12/28/21 12:23 Freq: Status: Active Protocol: Document 12/28/21 12:23 [facility] (Rec: 12/28/21 12:44 [facility] [id number]) Cognitive Factors Limiting Selfcare Function Cognitive Ability Level of Alertness Alert Patient Orientation Name,Age,Birthday,Month,Date, Year,Day of Week,Place, Situation Attention Span Ability Capable of Focused Attention, Capable of Sustained Attention Ability to Follow Commands Able to Follow Multi-Step Commands Safety Awareness No Deficits Noted Problem Solving Ability No deficits Noted Cognitive Comments Cognitive Assessment Comments Pt intact and appears at baseline for cognitive needs. OT- Vision and Hearing OT- Hearing Assessment OT- Hearing Assessment WFL OT- Vision Assessment Visual Acuity Glasses All The Time Visual Attentiveness WFL Occular Pursuits WFL Visual Convergence WFL Visual [place] WFL Vision Assessment Comments Complaining of some blurred vision during tracking. M7 OT- IP Mobility and Balance Start: 12/28/21 12:23 Freq: Status: Active Protocol: Document 12/28/21 12:23 [facility] (Rec: 12/28/21 12:44 [facility] [id number]) OT- Bed Mobility Assessment Supine to Sit Supine to Sit Assist Independent OT-Transfer Assessment Sit to and From Stand Sit to and from Stand Standby Assistance Transfers Transfer Ability Standby Assistance Technique Transfer Destination Bed,Chair Transfer Technique Stand Step Pivot Devices Transfer Assistive Devices None,Gait Belt Comments Mobility Comments BP supine 190/87, sitting 194/ 94 and after transfer 198/90, nursing notified. Pt needing CGA for slight unsteadiness on her feet for the transfer. Encouraged use a walker instead of a cane at home as pt states her legs just give out at times. OT- Balance Assessment Sitting Balance and Reactions Static Sitting Balance Ability Normal Dynamic Sitting Balance Ability Normal Standing Balance and Reactions Static Standing Balance Ability Fair M8 OT- IP Objective Assessments Start: 12/28/21 12:23 Freq: Status: Active Protocol: Document 12/28/21 12:23 [facility] (Rec: 12/28/21 12:44 [facility] [id number]) OT Gross Range of Motion Upper Extremity Range of Motion Assessment Within Functional Limits OT Strength Upper Extremity Strength Assessment Within Functional Limits OT-Muscle Tone Assessment Muscle Tone WNL Yes M9 OT- IP Assessment and Plan Start: 12/28/21 12:23 Freq: Status: Active Protocol: Document 12/28/21 12:23 [facility] (Rec: 12/28/21 12:44 [facility] [id number]) OT Summary Assessment and Plan Potential Rehabilitation Potential Good Analytic Complexity at Evaluation Moderate Summary OT Impairments Balance,Functional Mobility, Dressing,Toileting,Bathing Progress Towards Goals Slow Progress due to Medical Issues,Slow Progress due to Activity Tolerance Assessment Summary Pt MOD complexity due to decreased balance at times, per pt has uncontrollable leg shaking at times - but not seen during OT eval,and therefore needing her sister to assist for mobility needs. Pt has a wc and 4ww in storage and suggested to use them again as needed for safety. Pt feels has no issues with OT needs and that her sister will be able to assist with all her ADL needs as needed. Pt to go home with sister's assist when medically stable. Pt states not wanting any further OT services at this time. Able to notify hospitalist, nursing, and case management of discharge from OT services. Discharge Recommendations OT Discharge Recommendations Home with 24/7 Assist Available Transportation Needs at Discharge Private Vehicle
--- NOTE | 2021-12-28 12:35 | PC.NURSE ---
At 1210 I was notified by PREDATORY GAME HUNTER of Pt Bp being 198/90. I informed Dr. Billy of BP nad Pt being asymptomatic. No new orders.
--- NOTE | 2021-12-28 14:54 | CM.DANOTE ---
Initial DCP Assessment Note Pt is a 61 yo female, resident of [place], arrives after possible seizure admitted for neurological deficit, PRES, stroke versus TIA rule out. PCP: Not Listed Payer: [employer]ji DEXTER Reviewed chart, pt discussed in multidisciplinary rounds this morning. Dr Billy anticipating patient will complete her MRI today and likely discharge home w/sister and close outpatient follow up. Therapy has cleared pt for return home w/family to assist and pt has planned for home No barriers identified at this time to patient's safe discharge home w/family to assist; close outpatient f/u recommended. JUSTIN Middleton Discharge Planning/Care Management CM Discharge Assessment Start: 12/28/21 14:49 Freq: Status: Active Protocol: Document 12/28/21 14:49 [facility] (Rec: 12/28/21 14:54 [facility] [id number]) Discharge Planning Assessment Assigned Rush Seater JUSTIN Burgess DPOA/Assigned Designee Name Emergency Contact: Sumi Mendiola , sister Contact Information [phone] Advance Directives? Yes Advance Directives on File No History Provided By Patient,Family Member Has Patient been admitted in last 30 No days? Prior Living Arrangements Apartment/Condo Household Members family Type of transporation used prior to Drives own vehicle admit Independent with ADL's Yes Is patient alert and oriented? Yes Barriers to Discharge No Comment Home w/sister to assist as needed Discharge Plan Home Transportation Arrangement Sister Referrals Initiated None needed
--- NOTE | 2021-12-28 14:55 | PM.DS.1 ---
History of Present Illness History of Present Illness Date Patient Seen: 12/28/21 Chief complaint: States had a seizure Narrative: Per Leonor Rasmussen, KENNEL STAFF MEMBER-BC: ECHO Forte is a 61-year-old female daily smoker with extensive medical history including hypertension, hyperlipidemia, rheumatoid arthritis, depression w/anxiety, COPD insomnia, neuropathy who presented to the ED for evaluation of shaking episodes. The patient reports a 5 year history shaking of her extremities, with varied extremity involvement, and degree. She states that these episodes occurred on average once monthly for the past 5 years. She came into the ED because within the last month she has had 20 or so episodes. The patient has been seen and evaluated by both her primary and multiple neurologists over the past 5 years, and no etiology has been determined. Her current neurologist is Dr. Gee at [facility]. Within the past week she has had episodes of dysarthria, and difficulty with walking and balance having near syncopal episodes she also reports that she bit her tongue earlier in the week as well. She went to the would be walk-in clinic following a witnessed syncopal episode. She is nearly always awake during these episodes in which her her arms and legs will be shaking.? She denies any recent trauma or head injury.? She has no blurred vision or trouble with speech.? She denies any change in her medications. Patient denies headache, acute changes in vision, tinnitus, hearing difficulties, diaphoresis, chest pain, shortness of breath, changes with numbness, tingling, impaired dexterity, recent illness or injury. Patient does report that she has stopped driving as she feels it is unsafe. Patient last had an echo, stress test and sleep study in 2019 which she reports was within normal limits. Patient is resting comfortably in bed at this time has not reported any further episodes since arriving on the floor for admit. Upon admit patient's temp 97.9?, BP 145/69, HR 54, arbs 15, O2 saturation 96% on room air. Patient's CBC is predominantly within normal limits, her CMP demonstrates possible JAIRO the patient denies any history of CKD, but her only is previous labs in our system from April of 2021 creatinine 1.87, BUN 30, GFR 26.5 today patient's sodium is 135, BUN is 28, creatinine is 1.07, GFR is 59 patient's initial troponin is within normal limits as is procalcitonin and lipase. Patient's head CT demonstrated findings consistent with posterior reversible encephalopathy syndrome. ED did consult with [facility] neuro stroke. Patient admitted for PRES, stroke versus TIA rule out. Discharge Providers Provider Date of admission: 12/27/21 20:43 Discharge Date: 12/28/21 Consults: 12/27/21 21:53 Consult to Dietitian, Adult Routine Comment: Reason For Exam: weight loss greater than 20 lbs last six months 12/27/21 21:54 Consult to Occupational Therapy Evaluate & Treat Comment: assess stability Physician Instructions: Evaluate and treat Consult to Physical Therapy Evaluate & Treat Comment: assess stability Physician Instructions: Evaluate and Treat 12/27/21 21:55 Consult to Discharge Planning Routine Comment: 12/27/21 21:57 Consult to Physical Therapy Evaluate & Treat Comment: Physician Instructions: Evaluate and Treat 12/28/21 05:59 Consult to Dietitian, Adult Routine Comment: Reason For Exam: weightloss >20 lbs in 6 months Discharge provider: Erich Billy DO Summary Hospital Course Discharge Diagnosis: 1. Posterior reversible encephalopathy syndrome, acute, present on admission 2. JAIRO, acute, present on admission 3. Essential hypertension, acute on chronic, present on admission 4. 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 Depression with anxiety, chronic, present on admission 6. Hyperlipidemia, chronic, present on admission 7. Rheumatoid arthritis with neuropathy, chronic, present on admission Hospital Course: ECHO Forte is a 61-year-old female daily smoker with extensive medical history including hypertension, hyperlipidemia, rheumatoid arthritis, depression w/anxiety, COPD insomnia, neuropathy who presented to the ED? for evaluation of shaking episodes, syncopal episodes, dysarthria, and increasing balance and coordination impairment.? The patient has noted a significant increase in these extremity shaking events over the past month with increasing near-syncope and syncopal episodes, dysarthria and poor balance and coordination issues.?CT scan showed possibility of PRES, and MRI findings were also consistent with PRES. I recommend her immunomodulators for RA be discontinued at this time and she follow up with her graduation coach. Her BP were variable but she reports adequate control at home. She was started on a low dose of amlodipine for now and continued on her home medications. She was advised to continue a BP log and follow up with PCP for further adjustments. Her JAIRO improved, may be due to possible seizure activity with PRES but not entirely clear. Given possible reported seizure activity, she was started on Keppra for seizure prevention as well. It is recommended she follow up with PCP for referral to outpatient neurology. With the above interventions she felt improved and did well with therapies, she was discharged home. Exam Vital Signs (past 8 hours): - 12/28/21 09:07 12/28/21 09:00 12/28/21 09:35 Temperature 97.2 F L Pulse Rate 62 61 Respiratory Rate 18 Blood Pressure 162/79 H 162/79 H Pulse Oximetry 97 97 Oxygen Delivery Method Room Air Oxygen Flow Rate 0 0 12/28/21 12:52 12/28/21 13:00 Temperature 97.0 F L Pulse Rate 69 Respiratory Rate 18 Blood Pressure 159/89 H Pulse Oximetry 98 96 Oxygen Delivery Method Room Air Oxygen Flow Rate 0 0 Oxygen Delivery Method Room Air Oxygen Flow Rate 0 Narrative Exam Narrative: General: Patient is a well-developed, well-nourished female in no distress at this time. HEENT: Normocephalic, atraumatic, extraocular muscles intact, oral pharynx is clear and mucous membranes are moist. Neck is supple and symmetric, trachea is midline, no adenopathy, no thyroid enlargement, nontender, no masses palpated. Negative for JVD Chest: Normal AP diameter and contour without kyphoscoliosis, no nasal flaring, retractions, or tachypneic labored breathing. Lungs: Auscultation of all lung payne are clear without adventitious sounds, wheezes, rhonchi, or rales. Cardio: S1 & S2 with regular rate and rhythm without murmur, rubs, or gallops, no carotid bruit, no cardiac pulsations present. Abdomen: Soft nontender, negative for organomegaly, or masses. Bowel sounds are present in all 4 quadrants without guarding or rebound, no CVA tenderness. Musculoskeletal: Muscle strength and tone are equal within normal limits, no deformity, crepitus, effusions, cyanosis, clubbing or edema present. Full range of motion intact radial and pedal pulses are normal. Skin: Warm dry and intact without rashes, ulcerations or petechiae. Neuro: Alert and orientated x3, strength is +5/5 in all extremities, sensation to touch intact, no gross deficits noted of cranial nerves. Psych: Patient has a well-kept appearance, appropriate affect, mental status attitude thought context and judgment are appropriate for age. Objective Labs Result Diagrams: 12/27/21 17:00 12/28/21 06:51 Labs: Laboratory Results - last 24 hr 12/27/21 12/27/21 12/27/21 17:00 17:00 21:29 WBC 8.4 RBC 3.93 L Hgb 13.2 Hct 38.1 MCV 97.0 MCH 33.5 MCHC 34.6 RDW 15.1 H Plt Count 236 Neut % (Auto) 56.8 Lymph % (Auto) 27.7 [place] % (Auto) 12.7 Eos % (Auto) 2.2 Baso % (Auto) 0.6 Neut # (Auto) 4800 Lymph # (Auto) 2300 [place] # (Auto) 1100 H Eos # (Auto) 200 Baso # (Auto) 100 Sodium 135 L Potassium 4.3 Chloride 105 Carbon Dioxide 24 BUN 28 H Creatinine 1.07 H Estimated GFR 59 L BUN/Creatinine Ratio 26.2 H Glucose 98 Calcium 8.7 Magnesium Total Bilirubin 0.3 AST 17 ALT 13 Alkaline Phosphatase 68 Total Creatine Kinase 44 CK-MB (CK-2) TNP CK-MB (CK-2) Rel Index TNP Troponin I < 0.012 NT-Pro-B Natriuret Pep Total Protein 7.5 Albumin 3.9 Globulin 3.6 Albumin/Globulin Ratio 1.1 Lipase 56 TSH Prolactin 8.1 Urine Color Urine Appearance Urine pH Ur Specific [place] Urine Protein Urine Glucose (UA) Urine Ketones Urine Occult Blood Urine Nitrate Urine Bilirubin Urine Urobilinogen Ur Leukocyte Esterase Urine RBC Urine WBC Ur Squamous Epith Cells Urine Bacteria Ur Culture Indicated? SARS-CoV-2 (PCR) Negative 12/27/21 12/27/21 12/27/21 21:31 23:00 23:00 WBC RBC Hgb Hct MCV MCH MCHC RDW Plt Count Neut % (Auto) Lymph % (Auto) [place] % (Auto) Eos % (Auto) Baso % (Auto) Neut # (Auto) Lymph # (Auto) [place] # (Auto) Eos # (Auto) Baso # (Auto) Sodium Potassium Chloride Carbon Dioxide BUN Creatinine Estimated GFR BUN/Creatinine Ratio Glucose Calcium Magnesium 2.2 Total Bilirubin AST ALT Alkaline Phosphatase Total Creatine Kinase CK-MB (CK-2) CK-MB (CK-2) Rel Index Troponin I NT-Pro-B Natriuret Pep Total Protein Albumin Globulin Albumin/Globulin Ratio Lipase TSH 6.72 H Prolactin Urine Color Yellow Urine Appearance Cloudy Urine pH 5.0 Ur Specific [place] <=1.005 Urine Protein Negative Urine Glucose (UA) Negative Urine Ketones Negative Urine Occult Blood Negative Urine Nitrate Negative Urine Bilirubin Negative Urine Urobilinogen 0.2 Ur Leukocyte Esterase 1+ H Urine RBC None seen Urine WBC 5-10/hpf H Ur Squamous Epith Cells 1-5 /hpf Urine Bacteria Many (>30) H Ur Culture Indicated? Specimen cultured SARS-CoV-2 (PCR) 12/27/21 12/28/21 23:00 06:51 WBC RBC Hgb Hct MCV MCH MCHC RDW Plt Count Neut % (Auto) Lymph % (Auto) [place] % (Auto) Eos % (Auto) Baso % (Auto) Neut # (Auto) Lymph # (Auto) [place] # (Auto) Eos # (Auto) Baso # (Auto) Sodium 138 Potassium 4.5 Chloride 109 H Carbon Dioxide 25 BUN 20 H Creatinine 0.69 Estimated GFR > 60 BUN/Creatinine Ratio 29.0 H Glucose 89 Calcium 8.5 Magnesium Total Bilirubin 0.3 AST 13 L ALT 11 Alkaline Phosphatase 61 Total Creatine Kinase CK-MB (CK-2) CK-MB (CK-2) Rel Index Troponin I < 0.012 NT-Pro-B Natriuret Pep 123 Total Protein 6.8 Albumin 3.4 L Globulin 3.4 Albumin/Globulin Ratio 1.0 Lipase TSH Prolactin Urine Color Urine Appearance Urine pH Ur Specific [place] Urine Protein Urine Glucose (UA) Urine Ketones Urine Occult Blood Urine Nitrate Urine Bilirubin Urine Urobilinogen Ur Leukocyte Esterase Urine RBC Urine WBC Ur Squamous Epith Cells Urine Bacteria Ur Culture Indicated? SARS-CoV-2 (PCR) [facility] Medical History (Updated 12/28/21 @ 04:36 by ANILA Obregon) Asthma COPD (chronic obstructive pulmonary disease) Depression with anxiety Essential hypertension Hyperlipidemia Neuropathy Rheumatoid arthritis Surgical History (Updated 12/28/21 @ 04:36 by ANILA Obregon) History of tonsillectomy Family History (Updated 12/28/21 @ 04:37 by ANILA Obregon) Mother Diabetes mellitus Hypertension Hyperlipidemia Father Cancer Rheumatoid arthritis Social History household members: family Smoking Status: Current every day smoker alcohol intake: former Discharge Plan Discharge Plan Patient Disposition: Home Provider Discharge Comment: You were admitted to the hospital, found to likely have a condition called PRES. Treatment of this includes further BP control, cessation of your medications for RA, and seizure medications. Please follow up with PCP as you already have one scheduled, with probable need for referral to neurology. Discharge orders & Medications Prescriptions: New amlodipine 2.5 mg tablet 2.5 mg PO DAILY 30 Days Qty: 30 0RF levetiracetam [Keppra] 500 mg tablet 500 mg PO BID 30 Days Qty: 60 0RF Continued losartan 50 mg Tablet 50 mg PO DAILY fexofenadine 180 mg Tablet 180 mg PO DAILY lidocaine-prilocaine 2.5-2.5 % Cream 1 applic topical TID PRN (Reason: Pain, Mild) famotidine 20 mg Tablet 20 mg PO BID triamcinolone acetonide 0.1 % Ointment 1 applic TOPICAL DAILY PRN (Reason: Rash) hydroxyzine HCl 10 mg Tablet 10 mg PO TID PRN (Reason: Itching) Trelegy Ellipta 200-62.5-25 mcg Blister With Device 1 inh INHALATION DAILY atorvastatin 20 mg Tablet 20 mg PO BEDTIME meloxicam 15 mg Tablet 15 mg PO DAILY hydrocodone-acetaminophen 10-325 mg Tablet 1 tab PO Q4-6H PRN (Reason: Pain (Scale Score 1-3)) gabapentin 800 mg Tablet 800 mg PO TID trazodone 100 mg Tablet 100 mg PO BEDTIME benzonatate 100 mg Capsule 100 mg PO TID PRN (Reason: Cough) buspirone 7.5 mg Tablet 7.5 mg PO BID montelukast 10 mg Tablet 10 mg PO DAILY albuterol sulfate 90 mcg/actuation Hfa Aerosol Inhaler 2 puff INHALATION 6XD PRN (Reason: Shortness Of Breath) fluticasone propionate 50 mcg/actuation [place],Suspension 2 spray INTRANASAL TID Rx Instructions: administer into each nostril escitalopram oxalate 20 mg Tablet 20 mg PO DAILY diclofenac sodium 1 % Gel 2.5 g TOPICAL QID Rx Instructions: apply to single elbow, wrist or hand; for hand includes palm/fingers/back of hand Discontinued Glenis Peoples 50 mg/mL (1 mL) Pen Injector 50 mg SUBCUT QWEEK Label Comments: NEXT DOSE 01/03 leflunomide 20 mg Tablet 20 mg PO DAILY Diet/Activity/Treatments Diet: Diet as Tolerated Activity: As tolerated Discharge Data Attending Provider: Leonor Rasmussen VTE Deep Vein Thrombosis/Pulmonary Embolism Present on Admission: No
[2021-12-28] MEDS: levETIRAcetam 250 MG TABLET 500 MG PO (15:19)
[2021-12-28] MEDS: AMLODIPINE 5 MG TABLET 2.5 MG PO (15:19)
--- NOTE | 2021-12-28 15:30 | PT.IIE ---
Surgical History (Last Updated 12/28/21 @ 04:36 by [facility]) History of tonsillectomy Medical History (Last Updated 12/28/21 @ 04:36 by [facility]) Asthma COPD (chronic obstructive pulmonary disease) Depression with anxiety Essential hypertension Hyperlipidemia Neuropathy Rheumatoid arthritis Physical Therapy Inpatient Evaluation/Re-Eval M1 PT/OT-IP Prior Functional Status Start: 12/28/21 12:23 Freq: NEEDED Status: Active Protocol: Document 12/28/21 15:30 DLM (Rec: 12/28/21 15:50 DL [id number]) Medical Review Prior Functional Status Medical History Reviewed Yes Diet/Fluid Consistency Regular Communication independent, WFL Mobility and Gait Use of cane in the house at times when her legs are shaky, otherwsie no device used. Able to ambulate in community when feeling well. Activities of Daily Living and IADL's Pending how she feels, pt is independent for ADL's but her sister assists as needed. Pt's sister assist wit IADl needs, and supervision for money management needs. Prior Functional Level (Other details) she goes to chiropractor regularly Social History Household Members family Living Arrangements Apartment/Condo Number of Floors (Floors) One Floor Number of Stairs To Enter/Railing? 2 steps Home Equipment Four Wheel Walker,Straight Cane,Manual Wheelchair M2 PT-IP Current Condition Start: 12/28/21 15:37 Freq: NEEDED Status: Active Protocol: Document 12/28/21 15:30 DLM (Rec: 12/28/21 15:50 DL [id number]) Physical Therapy Current Condition Current Condition Evaluation Date 12/28/21 Treatment Diagnosis dysarthria, ?seizure, difficulty ambulating Onset Date 12/27/21 M3 PT-IP Subjective Start: 12/28/21 15:37 Freq: NEEDED Status: Active Protocol: Document 12/28/21 15:30 DLM (Rec: 12/28/21 15:50 DL [id number]) Subjective Physical Therapy Visit Type Type Initial Evaluation Visit Start Time 15:00 Visit Stop Time 15:30 Total Visit Minutes 30 Number of MISSILEMAN Visits 0 Physical Therapy Visit Comments Patient Comments She reports she is feeling better today. She has had no shaking today Patient Goals discharge home M4 PT-IP Mobility and Gait Start: 12/28/21 15:37 Freq: NEEDED Status: Active Protocol: Document 12/28/21 15:30 DLM (Rec: 12/28/21 15:50 DLM [id number]) PT-Bed Mobility Assessment Rolling Level of Assist Independent Supine to Sit Supine to Sit Independent Sit to Supine Sit to Supine Independent Scooting Scooting to Edge of Bed Independent Scooting Up and Down in Bed Independent PT-Transfer Assessment Sit to and From Stand Sit to and from Stand Independent Equipment Transfer Assistive Device None Transfers Transfer Destination Bed Transfer Technique Stand Step Pivot Transfer Ability Level of Assist Independent,Use of Upper Extremities Comments Mobility Comments pt up to toilet to urinate Gait Assessment Gait Gait Assistance Required: Independent Distance (Feet) 30 Assistive Devices Assistive Device None Gait Deviations General Gait Pattern Within Normal Limits,Wide Based Gait Comments Gait Comments no losses of balance during gait PT-Balance Assessment Sitting Balance and Reactions Static Sitting Balance Ability Normal Dynamic Sitting Balance Ability Normal Standing Balance and Reactions Static Standing Balance Ability Good Dynamic Standing Balance Ability Good Device Used none Balance Tests Single Limb Standing can hold 3-5 sec each LE Romberg mild sway but no LOB Tandem Standing unable to hold M5 PT-IP Objective Assessments Start: 12/28/21 15:37 Freq: NEEDED Status: Active Protocol: Document 12/28/21 15:30 DLM (Rec: 12/28/21 15:50 DL [id number]) Orientation Orientation/Cognition Level of Alertness Alert Orientation Name,Age,Birthday,Month,Date, Year,Day of Week,Place, Situation Language Function Ability No Deficits Noted Safety Awareness Understands Safety Issues Memory Description No Deficits Noted Gross Range of Motion Upper Extremity ROM Assessment Within Functional Limits Lower Extremity ROM Assessment Within Functional Limits Strength Upper Extremity Strength Assessment Within Functional Limits Lower Extremity Strength Assessment Within Functional Limits Coordination Assessment Gross Coordination Gross Coordination WNL Sensation Assessment Sensation Gross Sensation WNL Muscle Tone Muscle Tone WNL Yes M6 PT-IP Treatment Start: 12/28/21 15:37 Freq: NEEDED Status: Active Protocol: Document 12/28/21 15:30 DLM (Rec: 12/28/21 15:50 DL [id number]) Physical Therapy Treatment Other Treatments Other Treatment Performed Her Sister arrived during this visit M7 PT-IP Assessment and Plan Start: 12/28/21 15:37 Freq: NEEDED Status: Active Protocol: Document 12/28/21 15:30 DLM (Rec: 12/28/21 15:50 DLM [id number]) PT Summary Assessment and Plan Potential Rehabilitation Potential Good Status of Condition at Evaluation Stable Summary Assessment Summary ECHO is alert and resting in bed . She is energetic and eager to get up and ambulate. She tolerated gait in the ramon well without a device. Her bed mobility and transfers are indepedent. She denies shaking or other symptoms today. She feels safe to discharge home with her Sister. No skilled physical therapy needs identified at this time. Pt plans to discharge later today . Frequency of Treatment Frequency Of Treatment Discharge Recommendations To Nursing Amount of Assist Needed Independent Discharge Recommendations PT Discharge Recommendations Home with Assistance Other Discharge Recommendations Sister helps her as needed Transportation Needs at Discharge Private Vehicle
== END 2021-12-28 15:55 | disposition home or self-care (01) ==
LOC: ED 18:30 → AC 21:04
PROVIDERS: Emergency Medicine; Admitting Provider Nurse Practitioner Family; Emergency Provider Emergency Medicine; Referring Provider Emergency Medicine; Visit Provider Nurse Practitioner Family
DX: I67.83 Posterior reversible encephalopathy syndrome (principal); I10 Essential (primary) hypertension; J44.9 Chronic obstructive pulmonary disease, unspecified; F17.210 Nicotine dependence, cigarettes, uncomplicated; F32.A Depression, unspecified; F41.9 Anxiety disorder, unspecified; E78.5 Hyperlipidemia, unspecified; M06.9 Rheumatoid arthritis, unspecified; G62.9 Polyneuropathy, unspecified; N17.9 Acute kidney failure, unspecified; Z20.822 Contact with and (suspected) exposure to COVID-19
CPT/HCPCS: 36415; 70450; 70553; 80053; 81001; 82550; 83690; 83735; 83880; 84146; 84443; 84484; 85025; 87077; 87086; 87186; 87635; 93005; 96372; 97161; 97166; 99284; C9803; G0378; A9579; J1650